=== PATIENT | female | born 2000 | race Caucasian/White ===

== ENCOUNTER 2024-11-10 21:13 | Emergency (ER) | payer MEDICAID ==
[~2024-11-10] VITALS: Ht 165.1 cm; Wt 126.7 kg
[2024-11-10 21:42] LABS: BASOPHILS % (AUTO) 0.2 % (0-1); EOSINOPHILS # (AUTO) 0.1 X10'3 (0-0.9); EOSINOPHILS % (AUTO) 0.8 % (0-6); HEMATOCRIT 35.4 % (35.0-45.0); HEMOGLOBIN 11.8 g/dl (12.0-16.0); LYMPHOCYTES # (AUTO) 2.2 X10'3 (1.1-4.8); LYMPHOCYTES % (AUTO) 18.6 % (21-51); MEAN CORPUSCULAR HEMOGLOBIN 28.1 PG (27.0-31.0); MEAN CORPUSCULAR HGB CONC 33.4 g/dL (33.0-36.5); MEAN CORPUSCULAR VOLUME 84.1 FL (78-98); MEAN PLATELET VOLUME 8.9 FL (7.4-10.4); MONOCYTES # (AUTO) 0.4 X10'3 (0-0.9); MONOCYTES % (AUTO) 3.6 % (2-12); NEUTROPHILS # (AUTO) 9.1 X10'3 (1.8-7.7); NEUTROPHILS % (AUTO) 76.8 % (42-75); PLATELET COUNT 261 X10'3 (140-440); RED BLOOD COUNT 4.21 X10'6 (4.20-5.60); RED CELL DISTRIBUTION WIDTH 14.7 % (11.5-14.5); WHITE BLOOD COUNT 11.9 X10'3 (4.5-11.0)
[2024-11-10 21:49] LABS: URINE HCG NEGATIVE (NEG)
[2024-11-10 21:52] LABS: BILIRUBIN,URINE NEGATIVE (Neg); CLARITY,URINE CLEAR (Clear); COLOR,URINE YELLOW (Yellow); GLUCOSE, URINE NEGATIVE (Neg); KETONES,URINE NEGATIVE (Neg); LEUKOCYTE ESTERASE ,URINE NEGATIVE (Neg); NITRITES, URINE NEGATIVE (Neg); OCCULT BLOOD,URINE NEGATIVE (Neg); PROTEIN,URINE NEGATIVE (Neg); UROBILINOGEN,URINE 0.2 E.U/dL (0.2-1.0)
[2024-11-10 21:54] LABS: ALANINE AMINOTRANSFERASE 29 U/L (12-78); ALBUMIN 3.5 G/DL (3.4-5.0); ALBUMIN/GLOBULIN RATIO 0.8 (1.1-1.5); ALKALINE PHOSPHATASE 72 IU/L (46-116); ANION GAP 5 (8-16); ASPARTATE AMINO TRANSFERASE 18 U/L (10-37); BILIRUBIN,TOTAL 0.7 MG/DL (0.1-1.0); BLOOD UREA NITROGEN 10 MG/DL (7-18); BUN/CREATININE RATIO 8.9 (10.0-20.0); CALCIUM 8.8 MG/DL (8.5-10.1); CHLORIDE 104 MMOL/L (99-107); CREATININE 1.12 MG/DL (0.40-0.90); GLUCOSE 104 MG/DL (70-104); LIPASE 22 U/L (16-77); SODIUM 138 MMOL/L (135-145); TOTAL CARBON DIOXIDE 28.8 MMOL/L (24-32); eCRCL 70 ML/MIN; eGFR 60 ML/MIN
[2024-11-10 21:59] LABS: UA COLLECTION TYPE CLN CATCH MIDSTREAM
--- NOTE | 2024-11-10 22:11 | Physician Documentation ---
History of Present Illness ~ Chief Complaint: Abdominal Pain w/vomiting Stated Complaint: ABD PAIN Time Seen by MD: 21:49 Mode of Arrival: POV HPI Patient presents to the emergency room for evaluation of abdominal pain and nausea. Onset of symptoms this morning. She was taken a [place] for the pain. Menstrual cycle was approximately 25 days ago. She was states she initially felt this might be menstrual cramps however it got worsened lateralized to the left side therefore she was concerned for possible appendicitis. Last Menstrual Period: Oct 11, 2024 Medication Reconciliation Allergies: Coded Allergies: No Known Allergies (Unverified , 11/10/24) Past Medical History Last Menstrual Period: Oct 11, 2024 Review of Systems ROS All review of systems negative except as per HPI Physical Exam Vital Signs: Temperature: 98.1, Source: Oral, Heart Rate: 98, Respiratory Rate: 14, BP: 125/75, Pulse Oximetry: 98, Weight: 126.700 Oxygen Flow Rate: 0 Physical Exam General: Patient is awake, alert, oriented x4 in no acute distress Head: Normocephalic and atraumatic. Eyes: Conjunctival normal. EOMI. PERRL. ENT: Mucous membranes moist. Neck: Supple, trachea is midline. Chest: Clear to auscultation bilaterally without rales, rhonchi, or wheezes. There is no accessory muscle use or retractions. Cardiac: RRR without murmurs, gallops, or rubs. Abd: Soft, nondistended, mild tenderness to deep palpation to left abdomen. No adnexal tenderness negative Conley's negative McBurney's Progress Results/Orders Results/Orders Orders - KALEN MILLIGAN MD Abdomen,Single View(Kub) (11/10/24 22:19) Completed Orders - KALEN MILLIGAN MD Urinalysis, Cult If Indicated (11/10/24 21:15) Hcg, Ur Ql (11/10/24 21:15) Cbc/Diff (11/10/24 21:15) Lipase (11/10/24 21:15) CMP (11/10/24 21:15) Ibuprofen Tablet (Motrin Tablet) (11/10/24 22:20) Acetaminophen 325mg Tablet (Tylenol Tabl (11/10/24 22:20) Ondansetron Disint. Tablet (Zofran Odt T (11/10/24 22:20) Abdomen,Single View(Kub) (11/10/24 22:19) Medications Received in ER Medications (Trade) Dose Ordered Sig/[place] Route PRN Reason Start Time Stop Time Status Last Admin Dose Admin (Motrin tablet) 800 mg ONCE ONCE PO 11/10/24 22:20 11/10/24 22:21 DC 11/10/24 22:21 800 MG (Tylenol tablet) 650 mg ONCE ONCE PO 11/10/24 22:20 11/10/24 22:21 DC 11/10/24 22:21 650 MG (Zofran ODT tablet) 8 mg ONCE ONCE PO 11/10/24 22:20 11/10/24 22:21 DC 11/10/24 22:21 8 MG Vital Signs 11/10/24 11/10/24 11/10/24 11/10/24 21:25 21:33 21:35 22:25 Temp 98.1 98.1 98.1 Pulse 98 96 Resp 16 16 14 14 B/P (MAP) 140/83 125/75 (92) 111/65 (80) Pulse Ox 98 98 96 O2 Flow Rate 0 0 0 Laboratory Tests Test 11/10/24 21:30 11/10/24 21:32 Urine Specimen Description Cln catch midstream Urine Color Yellow Urine Clarity Clear Urine pH 6.0 Urine Specific [place] 1.015 Urine Protein Negative Urine Glucose (UA) Negative Urine Ketones Negative Urine Occult Blood Negative Urine Nitrite Negative Urine Bilirubin Negative Urine Urobilinogen 0.2 Urine Leukocyte Esterase Negative Urine Culture Indicated Not ind Volume Urine Centrifuged 10 ml Urine HCG, Qualitative Negative Urine Comment White Blood Count 11.9 H Red Blood Count 4.21 Hemoglobin 11.8 L Hematocrit 35.4 Mean Corpuscular Volume 84.1 Mean Corpuscular Hemoglobin 28.1 Mean Corpuscular Hemoglobin Concent 33.4 Red Cell Distribution Width 14.7 H Platelet Count 261 Mean Platelet Volume 8.9 Neutrophils (%) (Auto) 76.8 H Lymphocytes (%) (Auto) 18.6 L Monocytes (%) (Auto) 3.6 Eosinophils (%) (Auto) 0.8 Basophils (%) (Auto) 0.2 Neutrophils # (Auto) 9.1 H Lymphocytes # (Auto) 2.2 Monocytes # (Auto) 0.4 Eosinophils # (Auto) 0.1 Basophils # (Auto) 0.0 CBC Comment Sodium Level 138 Potassium Level 4.0 Chloride Level 104 Carbon Dioxide Level 28.8 Anion Gap 5 L Blood Urea Nitrogen 10 Creatinine 1.12 H Estimated GFR/1.73 m2 60 BUN/Creatinine Ratio 8.9 L Glucose Level 104 Calcium Level 8.8 Total Bilirubin 0.7 Aspartate Amino Transf (AST/SGOT) 18 Alanine Aminotransferase (ALT/SGPT) 29 Alkaline Phosphatase 72 Total Protein 8.0 Albumin 3.5 Globulin 4.5 H Albumin/Globulin Ratio 0.8 L Lipase 22 Chemistry Comments Medical Decision Making Findings Patient presented to the emergency room with abdominal pain as per HPI. Differentials include but are not limited to appendicitis cholecystitis diverticulitis small-bowel obstruction constipation. Very slight elevation of white blood cell count which I believe it was stress response and he had not believe patient was suffering from intra-abdominal infection. Symptoms have improved. Patient was nontoxic appearing with stable vitals. ER precautions regarding worsening of symptoms or fevers discussed. We will defer CT scan at this time with ER precautions as I believe the risk of radiation exposure at this time outweighs any benefit. I have considered ovarian pathology however she was no adnexal tenderness. Departure Disposition: HOME / SELF CARE / HOMELESS Impression: Primary Impression: Abdominal pain Condition: Improved Discharge Instructions: Abdominal Pain (Nonspecific) Referrals: NO PRIMARY CARE PROVIDER (PCP) Education Educated: Patient Educated regarding: need for follow up Signature Scribe Signature: No scribe Attestation: The note accurately reflects work and decisions made by me.Kalen Milligan MD 11/10/24 23:26 KALEN MILLIGAN MD November 10, 2024 22:11
[2024-11-10] MEDS: ibuprofen tablet 400 MG TABLET PO ONE (22:21)
[2024-11-10] MEDS: acetaminophen 325mg tablet PO ONE (22:21)
[2024-11-10] MEDS: ondansetron 4mg rapidly disintigrating tab PO ONE (22:21)
[2024-11-10 22:25] VITALS: BP 111/65; PULSE 96; RESP 14; TEMP 98.1; O2SAT 96
--- NOTE | 2024-11-10 23:22 | RADIOLOGY REPORT ---
Clinical History abd pain Comparison None Without Contrast RIVERA HERRERA, [id number] Technique: 2 erect views of the abdomen. Findings: Nonspecific bowel gas pattern. No evidence of bowel obstruction. No clear evidence of free air. No abnormal radiopacities or soft tissue calcific foci. No acute osseous abnormality. The imaged part of the lower chest is unremarkable. Impression: No evidence of acute intra-abdominal abnormality. This report was electronically signed by Ethel Little MD on 11/10/2024 11:19:08 PM.
== END 2024-11-10 23:29 | disposition home or self-care (01) ==
LOC: ER 21:15
DX: R10.9 Unspecified abdominal pain (principal); R11.2 Nausea with vomiting, unspecified
CPT/HCPCS: 36415; 74018; 80053; 81003; 81025; 83690; 85025; 99284